=== PATIENT | female | born 1975 | race Hispanic/Latino ===

== ENCOUNTER 2020-02-04 15:09 | Emergency (ER) | payer SELFPAY ==
--- NOTE | 2020-02-04 16:31 | RAD REPORT ---
EXAM DESCRIPTION: CT - [id number] - 02/04/2020 4:02 pm CLINICAL HISTORY: dizziness COMPARISON: No comparisons TECHNIQUE: Axial 5 mm thick images of the head were obtained. Axial 2 mm thick images of the cervic al spine were obtained with sagittal and coronal reconstruction images generated and reviewed. All CT scans are performed using dose optimization technique as appropriate and may include automated exposure control or mA/KV adjustment according to patient size. FINDINGS: No intracranial hemorrhage, mass, edema or acute intracranial finding. No suspicion for ac adri infarction. No extra-axial fluid collections. Mastoid air cells and paranasal sinuses are clear. No globe or orbit abnormality seen. Cervical bodies are normal in height and AP alignment. Loss of cervical lordosis could be muscle spas m or exam positioning artifact. No disk space narrowing. No fracture or acute bony abnormality. Cent ral canal detail is inherently limited. No paraspinal mass or hematoma. IMPRESSION: Negative CT head examination for acute or significant finding. Negative CT cervical spine examination for acute or significant finding.
--- NOTE | 2020-02-04 16:48 | ER ---
Nurse's Notes [facility] Name: Lynn Arguelles Age: 44 yrs Sex: Female : 1975 Arrival Date: 02/04/2020 Time: 15:12 Bed 19 Private MD: Diagnosis: Labrynthitis Presentation: 02/03 15:36 Chief complaint: Patient states: dizziness, numbness to right arm/leg/fingers/toes X 4 iw days, also has right ear pain and pain in right side of head X 4 days. Coronavirus screen: At this time, the client does not indicate any symptoms associated with coronavirus-19. Ebola Screen: Patient negative for fever greater than or equal to 101.5 degrees Fahrenheit, and additional compatible Ebola Virus Disease symptoms Patient denies exposure to infectious person. Patient denies travel to an Ebola-affected area in the 21 days before illness onset. No symptoms or risks identified at this time. Initial Sepsis Screen: Does the patient meet any 2 criteria? No. Patient's initial sepsis screen is negative. Does the patient have a suspected source of infection? No. Patient's initial sepsis screen is negative. Risk Assessment: Do you want to hurt yourself or someone else? Patient reports no desire to harm self or others. Onset of symptoms was January 31, 2020. 15:36 Method Of Arrival: Ambulatory iw 15:36 Acuity: MELONIE 3 iw Triage Assessment: 15:40 General: Appears distressed, comfortable, obese, Behavior is cooperative, appropriate bp for age, anxious. Pain: Complains of pain in right ear. EENT: No deficits noted. Neuro: Reports numbness in right ear, right arm and right leg. Cardiovascular: No deficits noted. Respiratory: No deficits noted. GI: No signs and/or symptoms were reported involving the gastrointestinal system. : No signs and/or symptoms were reported regarding the genitourinary system. Derm: No deficits noted. Musculoskeletal: No deficits noted. Historical: - Allergies: 15:40 No Known Allergies; iw - Home Meds: 15:40 iron pills [Active]; iw - PMHx: 15:40 Anemia; iw - PSHx: 15:40 ; iw - Immunization history:: Adult Immunizations. - Social history:: Smoking status: Patient denies any tobacco usage or history of. Screenin:40 Abuse screen: Denies threats or abuse. Denies injuries from another. Tuberculosis bp screening: No symptoms or risk factors identified. 15:40 Nutritional screening: No deficits noted. Fall Risk None identified. bp Assessment: 15:40 General: SEE TRIAGE NOTE. bp 16:00 Reassessment: PT TO CT. bp 16:04 Reassessment: PT RETURNED FROM CT. bp 17:13 Reassessment: PT D/C HOME AMBULATORY WITH FAMILY, DX WITH LABYRINTHITIS. bp Vital Signs: 15:36 BP 151 / 78; Pulse 90; Resp 16; Temp 97.8; Pulse Ox 100% on R/A; Weight 99.79 kg; iw Height 5 ft. 4 in. (162.56 cm); Pain 5/10; 16:55 BP 127 / 70; Pulse 86; Resp 16; Temp 97.8; Pulse Ox 100% ; bp 15:36 Body Mass Index 37.76 (99.79 kg, 162.56 cm) iw NIH Stroke Scale Scores: 16:15 NIHSS Score: 0 snw ED Course: 15:12 Patient arrived in ED. mr 15:29 Ba Allen, RN is Primary Nurse. bp 15:31 Trudi Kebede FNP-C is PHCP. snw 15:31 Nate Best MD is Attending Physician. snw 15:38 Triage completed. iw 15:40 Arm band placed on. iw 15:40 Patient has correct armband on for positive identification. Bed in low position. Call bp light in reach. Side rails up X2. Adult w/ patient. 16:46 Tai Thornton MD is Referral Physician. snw 16:46 aNtalie Wall MD is Referral Physician. snw 16:56 No provider procedures requiring assistance completed. Patient did not have IV access bp during this emergency room visit. Administered Medications: No medications were administered Outcome: 16:48 Discharge ordered by . snw 17:13 Discharged to home ambulatory, with family. bp 17:13 Condition: stable 17:13 Discharge instructions given to patient, Instructed on discharge instructions, follow up and referral plans. medication usage, Demonstrated understanding of instructions, follow-up care, medications, Prescriptions given X 1. 17:14 Patient left the ED. bp NIH Stroke Scale - NIH Stroke Score Date: 02/04/2020 Time: 16:15 Total Score = 0 1a. Level of Consciousness (LOC) - 0(Alert) 1b. Level of Consciousness (LOC) (Year \T\ Age) - 0(Both) 1c. LOC Commands (Open \T\ Closes Eyes/Complaint Investigations Officer) - 0(Both) 2. Best Gaze (Lateral Gaze Paresis) - 0(Normal) 3. Visual Field Loss - 0(No visual loss) 4. Facial Palsy - 0(Normal) 5a. Left Arm: Motor (10-second hold) - 0(No drift) 5b. Right Arm: Motor (10-second hold) - 0(No drift) 6a. Left Leg: Motor (5-second hold - always test supine) - 0(No drift) 6b. Right Leg: Motor (5-second hold - always test supine) - 0(No drift) 7. Limb Ataxia (finger/nose \T\ heel/boogie - test with eyes open) - 0(Absent) 8. Sensory Loss (pinprick arms/legs/face) - 0(Normal) 9. Best Language: Aphasia (description/naming/reading) - 0(No aphasia) 10. Dysarthria (speech clarity - read or repeat words) - 0(Normal) 11. Extinction and Inattention (visual/tactile/auditory/spatial/personal) - 0(No abnormality) Initials: snw Signatures: Trudi Kebede, HOROLOGIST-C HOROLOGIST-Csnw Leslie Escudero Irene, RN Ba Simon, JACEK READ bp
--- NOTE | 2020-02-04 16:48 | EDPHYS ---
Physician Documentation [facility] Name: Lynn Arguelles Age: 44 yrs Sex: Female : 1975 Arrival Date: 02/04/2020 Time: 15:12 Bed 19 Private MD: ED Physician Nate Best HPI: 02/03 16:04 This 44 yrs old Female presents to ER via Ambulatory with complaints of snw Dizziness, pressure in right ear. 16:04 The patient presents with vertigo. Onset: The symptoms/episode began/occurred acutely. snw Context: occurred at home, occurred while the patient was lying down, URI. symptoms recurrent. Modifying factors: The symptoms are alleviated by nothing, the symptoms are aggravated by lying down. Associated signs and symptoms: Pertinent positives: tightness in right ear, some hearing loss, tightness to muscles of arms and legs on extension, occasional numbness to right first and second toe. Severity of symptoms: At their worst the symptoms were moderate. Patient's baseline: Neuro: alert and fully oriented, Motor: no deficits, Ambulation: walks without assistance, Speech: normal, The patient has a previous history of none. The patient has experienced similar episodes in the past, multiple times. about 1-2 months ago, pt felt she had Covid 19, the test was negative. Historical: - Allergies: 15:40 No Known Allergies; iw - Home Meds: 15:40 iron pills [Active]; iw - PMHx: 15:40 Anemia; iw - PSHx: 15:40 ; iw - Immunization history:: Adult Immunizations. - Social history:: Smoking status: Patient denies any tobacco usage or history of. ROS: 16:07 Eyes: Negative for injury, pain, redness, and discharge. snw 16:07 Neck: Negative for injury, pain, and swelling, Cardiovascular: Negative for chest pain, palpitations, and edema, Respiratory: Negative for shortness of breath, cough, wheezing, and pleuritic chest pain, Abdomen/GI: Negative for abdominal pain, nausea, vomiting, diarrhea, and constipation, Back: Negative for injury and pain, : Negative for injury, bleeding, discharge, and swelling, Skin: Negative for injury, rash, and discoloration. 16:07 Constitutional: Positive for right ear fullness, tenderness down right face. 16:07 ENT: Positive for ear pain. 16:07 MS/extremity: Positive for tenderness, to right arm and leg on extension. 16:07 Neuro: Positive for dizziness. Exam: 16:15 Constitutional: This is a well developed, well nourished patient who is awake, alert, snw and in no acute distress. Head/Face: Normocephalic, atraumatic. Eyes: Pupils equal round and reactive to light, extra-ocular motions intact. Lids and lashes normal. Conjunctiva and sclera are non-icteric and not injected. Cornea within normal limits. Periorbital areas with no swelling, redness, or edema. 16:15 ENT: Nares patent. No nasal discharge, no septal abnormalities noted. Tympanic membranes are normal and external auditory canals are clear. Oropharynx with no redness, swelling, or masses, exudates, or evidence of obstruction, uvula midline. Mucous membranes moist. Neck: Trachea midline, no thyromegaly or masses palpated, and no cervical lymphadenopathy. Supple, full range of motion without nuchal rigidity, or vertebral point tenderness. No Meningismus. Chest/axilla: Normal chest wall appearance and motion. Nontender with no deformity. No lesions are appreciated. Cardiovascular: Regular rate and rhythm with a normal S1 and S2. No gallops, murmurs, or rubs. Normal PMI, no JVD. No pulse deficits. Respiratory: Lungs have equal breath sounds bilaterally, clear to auscultation and percussion. No rales, rhonchi or wheezes noted. No increased work of breathing, no retractions or nasal flaring. Abdomen/GI: Soft, non-tender, with normal bowel sounds. No distension or tympany. No guarding or rebound. No evidence of tenderness throughout. Back: No spinal tenderness. No costovertebral tenderness. Full range of motion. Skin: Warm, dry with normal turgor. Normal color with no rashes, no lesions, and no evidence of cellulitis. Psych: Awake, alert, with orientation to person, place and time. Behavior, mood, and affect are within normal limits. 16:15 Musculoskeletal/extremity: Extremities: muscle pain on extension of right and left arm, ROM: no acute changes, Circulation is intact in all extremities. Sensation intact. occasional numbness to right great and second toes 16:15 Neuro: Exam negative for acute changes, Orientation: is normal, Mentation: is normal, Memory: is normal, Cranial nerves: grossly normal, Cerebellar function: is grossly normal, Motor: is normal, Sensation: no obvious gross deficits, seizure activity, is not displayed by the patient. Vital Signs: 15:36 BP 151 / 78; Pulse 90; Resp 16; Temp 97.8; Pulse Ox 100% on R/A; Weight 99.79 kg; iw Height 5 ft. 4 in. (162.56 cm); Pain 5/10; 16:55 BP 127 / 70; Pulse 86; Resp 16; Temp 97.8; Pulse Ox 100% ; bp 15:36 Body Mass Index 37.76 (99.79 kg, 162.56 cm) iw NIH Stroke Scale Scores: 16:15 NIHSS Score: 0 snw MDM: 16:18 Patient medically screened. snw 16:45 Data reviewed: vital signs, nurses notes. Data interpreted: Pulse oximetry: on room air snw is 100 %. Interpretation: normal. Counseling: I had a detailed discussion with the patient and/or guardian regarding: the historical points, exam findings, and any diagnostic results supporting the discharge/admit diagnosis, the presence of at least one elevated blood pressure reading (>120/80) during this emergency department visit, radiology results, the need for outpatient follow up, for definitive care, to return to the emergency department if symptoms worsen or persist or if there are any questions or concerns that arise at home. Response to treatment: There is no appreciated change of the patient's symptoms at this time. Special discussion: Based on the history and exam findings, there is no indication for further emergent testing or inpatient evaluation. I discussed with the patient/guardian the need to see the ENT specialist for further evaluation of the symptoms. I discussed with the patient/guardian the need to see the neurologist for further evaluation of the symptoms. I discussed with the patient/guardian the need to see the primary care provider for further evaluation of the symptoms. 02/03 15:38 Order name: CT Head C Spine snw 02/03 16:31 Order name: CT; Complete Time: 16:44 EDMS Administered Medications: No medications were administered Disposition: 02/04 09:40 Co-signature as Attending Physician, Nate Best MD I agree with the assessment and kdr plan of care. Disposition: 02/04/20 16:48 Discharged to Home. Impression: Labrynthitis. - Condition is Stable. - Discharge Instructions: Meniere Disease, Vertigo, DASH Eating Plan. - Prescriptions for Antivert 25 mg Oral Tablet - take 1 tablet by ORAL route every 8 hours As needed; 20 tablet. - Medication Reconciliation Form, Thank You Letter, Antibiotic Education, Prescription Opioid Use, Work release form form. - Follow up: Emergency Department; When: As needed; Reason: Worsening of condition. Follow up: Tai Thornton MD; When: 2 - 3 days; Reason: Recheck today's complaints, Continuance of care. Follow up: Natalie Wall MD; When: 2 - 3 days; Reason: Recheck today's complaints, Continuance of care. NIH Stroke Scale - NIH Stroke Score Date: 02/04/2020 Time: 16:15 Total Score = 0 1a. Level of Consciousness (LOC) - 0(Alert) 1b. Level of Consciousness (LOC) (Year \T\ Age) - 0(Both) 1c. LOC Commands (Open \T\ Closes Eyes/Locker Attendant) - 0(Both) 2. Best Gaze (Lateral Gaze Paresis) - 0(Normal) 3. Visual Field Loss - 0(No visual loss) 4. Facial Palsy - 0(Normal) 5a. Left Arm: Motor (10-second hold) - 0(No drift) 5b. Right Arm: Motor (10-second hold) - 0(No drift) 6a. Left Leg: Motor (5-second hold - always test supine) - 0(No drift) 6b. Right Leg: Motor (5-second hold - always test supine) - 0(No drift) 7. Limb Ataxia (finger/nose \T\ heel/boogie - test with eyes open) - 0(Absent) 8. Sensory Loss (pinprick arms/legs/face) - 0(Normal) 9. Best Language: Aphasia (description/naming/reading) - 0(No aphasia) 10. Dysarthria (speech clarity - read or repeat words) - 0(Normal) 11. Extinction and Inattention (visual/tactile/auditory/spatial/personal) - 0(No abnormality) Initials: snw Signatures: Dispatcher [employer] EDMS Nate Best MD MD kdr Waters, Shelly, MANUEL-C COPYMAN-Csnw Zoey Matthews, RN RN iw Ba Allen, RN RN bp Corrections: (The following items were deleted from the chart) 02/03 17:14 16:48 02/04/2020 16:48 Discharged to Home. Impression: Labrynthitis. Condition bp is Stable. Forms are Medication Reconciliation Form, Thank You Letter, Antibiotic Education, Prescription Opioid Use. Follow up: Emergency Department; When: As needed; Reason: Worsening of condition. Follow up: Tai Thornton; When: 2 - 3 days; Reason: Recheck today's complaints, Continuance of care. Follow up: Natalie Wall; When: 2 - 3 days; Reason: Recheck today's complaints, Continuance of care. snw
[2020-02-04 17:19] VITALS: TEMP 97.8; O2SAT 100
[2020-02-04 17:20] VITALS: BP 127/70
== END 2020-02-04 17:14 | disposition home or self-care (01) ==
LOC: ER 15:09
DX: H83.09 Labyrinthitis, unspecified ear (principal)
CPT/HCPCS: 70450; 72125; 99282; Q9967